=== PATIENT | female | born 2005 | race Caucasian/White ===

== ENCOUNTER 2025-02-18 16:11 | Outpatient (CLI) | payer OTHER, SELFPAY ==
[2025-02-18 16:03] LABS: HCT 42.4 % (36.0-46.0); HGB 14.2 g/dL (11.2-15.7); MCH 29.1 pg (27.0-33.0); MCHC 33.5 % (32.0-36.0); MCV 87 fL (80-95); MPV 10.9 fL (8.0-11.0); Platelet Count 204 10^3/uL (130-400); RBC 4.88 10^6/uL (3.93-5.22); RDW 12.6 % (11.7-14.6); RDW-SD 39.8 fL
[2025-02-18 16:18] LABS: Hemoglobin A1C 6.1 % (<5.7)
[2025-02-18 19:07] LABS: ALT 16 U/L (14-59); AST 11 U/L (15-37); Albumin 4.7 g/dL (3.4-5.0); Alkaline Phosphatase 64 U/L (46-116); Anion Gap 8.9 mmol/L (3-11); BUN 10 mg/dL (7-18); Bilirubin, Total 0.5 mg/dL (0.2-1.0); CO2 27.1 mmol/L (21.0-32.0); CREATININE 0.7 mg/dL (0.55-1.02); Calcium 9.2 mg/dL (8.5-10.1); Calculated LDL 115 mg/dL (<100); Chloride 100 mmol/L (98-107); Cholesterol 186 mg/dL (<200); Estimated GFR 127.69 (mL/min/1.73m2); Glucose 126 mg/dL (74-106); HDL Cholesterol 49 mg/dL (>or=50); Sodium 136 mmol/L (136-145); Total Protein 8.3 g/dL (6.4-8.2); Triglyceride 111 mg/dL (<150)
[2025-02-20 10:42] LABS: Hepatitis B Surface Ag Negative (Negative)
[2025-02-20 11:26] LABS: HIV-1/2 Ag & Ab Screen Negative (Negative)
[2025-02-20 11:57] LABS: Syphilis Serology (RPR) Negative (Negative)
== END 2025-02-18 16:12 | disposition home or self-care (01) ==
LOC: LBO 16:20
PROVIDERS: PCP Nurse Practitioner Family; Visit Provider Nurse Practitioner Family
DX: Z00.00 Encounter for general adult medical examination without abnormal findings (principal); Z71.84 Encounter for health counseling related to travel; Z02.0 Encounter for examination for admission to educational institution
CPT/HCPCS: 36415; 80053; 80061; 85027; 86900; 86901; 87340; 87389; 83036; 86592